=== PATIENT | male | born 1995 | race Caucasian/White ===

== ENCOUNTER 2016-03-08 09:02 | Emergency (ER) | payer OTHER ==
[~2016-03-08] VITALS: Ht 180.3 cm; Wt 68.9 kg
[~2016-03-08 09:02] MED LIST: ALBUTEROL0.09 MG/A1 INH; BENTYL20 MG PO; CLINDAMYCIN HC300 M1 PO; PREDNISONE10 MG PO; PROTONIX 40MG T40 MG PO; TESSALON PERLE100 MG PO; ZOFRAN4 M1 PO
--- NOTE | 2016-03-08 09:58 | ED INFLUENZA/URI COMPLAINT ---
History of Present Illness General Chief Complaint: Fever Stated Complaint: BODY ACHES, NVD Source: patient, family Exam Limitations: no limitations Vital Signs & Intake/Output Vital Signs & Intake/Output Vital Signs Date Time Temp Pulse Resp B/P Pulse O2 O2 Flow FiO2 Ox Delivery Rate 03/08 1114 99.9 92 16 120/69 96 Room Air 03/08 1050 100.1 03/08 0907 100.6 123 20 120/80 96 Room Air Allergies Coded Allergies: amoxicillin (Intermediate, RASH 05/12/15) coconut (COCONUTS - SEVERE VOMITING 05/12/15) Reconcile Medications Benzonatate (Tessalon Perle) 100 MG SGL 1 TAB PO TID PRN COUGH Clindamycin HCl 300 MG CAPSULE 1 CAP PO TID dog bite Dicyclomine Hydrochloride (Bentyl) 20 MG TAB 1 TAB PO TID PRN ABDOMINAL SPASMS Ondansetron (Zofran Odt) 4 MG ODT 1 TAB PO Q6HR PRN NAUSEA Triage Note: PT C/O BODYACHES WITH H/A AND FEVER. PT STATES N/V/D SINCE LAST NIGHT Triage Nurses Notes Reviewed? yes HPI: Patient states that he has been sick for the last 2 weeks, fever or flulike illness malaise nausea and vomited several times. He has cough with production, states that he has history of substance abuse and has been drinking alcohol daily for the past several weeks also abusing cocaine and marijuana. He is here with his mother who states that he has "been missing" for the last several weeks. His symptoms are getting worse fever or flulike illness body aches nausea with decreased appetite and vomited a few times yesterday and today. Normal bowel movements, no abdominal pain. No chest pain. He has bloody rhinorrhea at times and nasal congestion. (STEPHANY ENG) Past History Travel History Traveled to [place] past 21 day No Medical History Any Pertinent Medical History? 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 No (STEPHANY ENG) Review of Systems Review of Systems Constitutional: Reports: see HPI. Respiratory: Reports: no symptoms. Cardiovascular: Reports: no symptoms. Musculoskeletal: Reports: no symptoms. Skin: Reports: no symptoms. Neurological/Psychological: Reports: no symptoms. Hematologic/Endocrine: Reports: no symptoms. Immunologic/Allergic: Reports: no symptoms. All Other Systems: Reviewed and Negative (STEPHANY ENG) Physical Exam Physical Exam General Appearance: well developed/nourished Ears, Nose, Throat: normal ENT inspection, moist mucous membrane Comments: Well-developed well-nourished person. Appears mildly ill HEENT: Normal EENT exam, extraocular motion intact, no nystagmus. Pupils equally round and reactive to light. Nose is atraumatic. External auditory canal and Tympanic membranes clear. Pharynx normal. No swelling or edema. Neck: Supple, no lymphadenopathy, normal range of motion without pain or tenderness Back: Nontender, no CVA tenderness. Full range of motion Cardiovascular: Tachycardic with a regular rhythm no murmurs, normal JVP Respiratory: Chest nontender. No respiratory distress. Breath sounds clear to auscultation bilaterally Abdomen: Soft, nontender nondistended, no appreciable organomegaly. Normal bowel sounds. No ascites Extremity: No edema, no calf tenderness to palpation, normal and equal pulses. Neuro: Alert oriented x3, motor sensory normal, cranial nerves II through XII grossly intact. Skin: No appreciable rash on exposed skin, skin is warm and dry. Psych: Mood and affect is normal, memory and judgment is normal. Core Measures Severe Sepsis Present: No Septic Shock Present: No (STEPHANY ENG) Progress Differential Diagnosis: influenza, meningitis, neutropenia, otitis, pneumonia, pharyngitis, sinusitis Plan of Care: Orders Procedure Date/time Status Saline Lock 03/08 0950 Active URINE DRUG SCREEN FOR ER ONLY 03/08 0950 Complete ETHANOL 03/08 0950 Complete COMPREHENSIVE METABOLIC PANEL 03/08 0950 Complete CBC WITHOUT DIFFERENTIAL 03/08 0950 Complete RAPID VIRAL INFLUENZA A 03/08 0908 Complete Laboratory Tests 03/08/16 1043: Urine Opiates Screen < 100.00, Methadone Screen < 40, Barbiturate Screen < 60, Ur Phencyclidine Scrn < 6.00, Amphetamines Screen < 100, U Benzodiazepines Scrn < 85, Urine Cocaine Screen < 50, Urine Cannabis Screen > 80.00 H 03/08/16 1000: Anion Gap 12, Estimated GFR > 60, BUN/Creatinine Ratio 21.3, Glucose 126 H, Calcium 9.9, Total Bilirubin 1.0, AST 31, ALT 50, Alkaline Phosphatase 127 H, Total Protein 7.5, Albumin 4.6, Globulin 2.9, Albumin/Globulin Ratio 1.6, CBC w Diff NO MAN DIFF REQ, RBC 5.99, MCV 81.2, MCH 27.9, RDW 12.1, MPV 9.0, Gran % 76.0 H, Lymphocytes % 13.2 L, Monocytes % 10.7 H, Eosinophils % 0, Basophils % 0.1, Absolute Granulocytes 3.8, Absolute Lymphocytes 0.7 L, Absolute Monocytes 0.5, Absolute Eosinophils 0, Absolute Basophils 0, PUBS MCHC 34.4, Serum Alcohol < 10.0 Initial ED EKG: none Comments: Treated with IV fluids, IV Zofran, IV Toradol 30 mg and by mouth Tylenol. On reevaluation he is feeling better, his workup was unremarkable except for mild hyponatremia likely from dehydration and poor appetite. He is stable for discharge home. He has been febrile for more than 48 hours and Tamiflu would be ineffective, this was discussed with him and mother. Recommend symptomatic treatment (STEPHANY ENG) Departure Departure Disposition: HOME OR SELF CARE Condition: Stable Clinical Impression Primary Impression: Influenza Secondary Impressions: Hyponatremia Referrals: UNKNOWN (PCP/Family) Additional Instructions: Motion and Tylenol as needed for pain and fever, drink plenty of fluids. Eat salty foods to increase your salt level. [id number] cough and cold medication as needed. Departure Forms: Customer Survey General Discharge Information (STEPHANY ENG) PA/TOUCH UP PAINTER HAND Co-Sign Statement Statement: ED Attending supervision documentation- [] I saw and evaluated the patient. I have also reviewed all the pertinent lab results and diagnostic results. I agree with the findings and the plan of care as documented in the PA's/TOUCH UP PAINTER HAND's documentation. [X] I have reviewed the ED Record and agree with the PA's/TOUCH UP PAINTER HAND's documentation. [] Additions or exceptions (if any) to the PAs/TOUCH UP PAINTER HAND's note and plan are summarized below: [] (ROCAEL LLANOS,CAMILLA Maya)
[2016-03-08 10:07] LABS: ABSOLUTE BASOPHIL COUNT 0 /CUMM (0.0-0.2); ABSOLUTE EOSINOPHIL COUNT 0 /CUMM (0.0-0.7); ABSOLUTE GRANULOCYTE CT 3.8 /CUMM (1.4-6.5); ABSOLUTE LYMPH COUNT 0.7 /CUMM (1.2-3.4); ABSOLUTE MONOCYTE COUNT 0.5 /CUMM (0.10-0.60); BASOPHIL % 0.1 % (0.0-2.0); EOSINOPHIL % 0 % (0-5); HEMATOCRIT 48.6 % (42-52); MEAN CORPUSCULAR HGB 27.9 PG (27.0-31.0); MEAN CORPUSCULAR HGB CONC 34.4 G/DL (33.0-37.0); MEAN CORPUSCULAR VOLUME 81.2 FL (80.0-94.0); PLATELET COUNT 128 /CUMM (130-400); RBC DISTRIBUTION WIDTH 12.1 % (11.5-14.5); RED BLOOD CELL CT 5.99 /CUMM (4.70-6.10)
--- NOTE | 2016-03-08 10:41 | RADIOLOGY REPORT ---
EXAMINATION: XR CHEST CLINICAL INFORMATION: Pneumonia cough fever COMPARISON: Prior chest April 2015 TECHNIQUE: PA and lateral views of the chest were obtained. FINDINGS: No significant abnormality is noted involving the heart, lungs, mediastinum, bony thorax, or soft tissues. IMPRESSION: Unremarkable examination.
[2016-03-08 11:14] VITALS: BP 120/69
== END 2016-03-08 11:15 ==
LOC: ERH
PROVIDERS: Physician Assistant Surgical
DX: J11.1 Influenza due to unidentified influenza virus with other respiratory manifestations (principal); E87.1 Hypo-osmolality and hyponatremia; F10.10 Alcohol abuse, uncomplicated; F14.10 Cocaine abuse, uncomplicated; F12.10 Cannabis abuse, uncomplicated; Z87.891 Personal history of nicotine dependence
CPT/HCPCS: 80307; 87804; 87804-59; 96361; 96374; G0480; J1885